=== PATIENT | female | born 1940 | race Caucasian/White ===

== ENCOUNTER → 2018-01-28 | Outpatient (CLI) | payer OTHER ==
[~2018-01-28] MED LIST: ATOR10 PO; ATOR40TA; B Complex1 EAC2 PO; CYCL10 PO; Diovan160 MG PO; FEM-CAL CITRAT1 EACH PO; FOLI1 PO; HYDACE5 PO; METO100ER PO; MILK THISTLE200 MG PO; NAPR500 PO; PREMARIN; RXCYCL10 PO; SPIRONOLACTONE; TOPROL
== END | disposition home or self-care (01) ==
LOC: LAB 16:53 → LAB SHORT 16:53
PROVIDERS: Internal Medicine Hematology & Oncology
DX: D51.9 Vitamin B12 deficiency anemia, unspecified (principal)
CPT/HCPCS: 82607; 82728; 82746; 83540; 83550

== ENCOUNTER → 2018-03-03 | Outpatient (CLI) | payer OTHER ==
[2018-03-03 13:54] LABS: BASOPHILS ABSOLUTE AUTO 0.05 K/mm3 (0.00-0.23); BASOPHILS PERCENT AUTO 1 % (0-2); EOSINOPHILS PERCENT AUTO 2 % (0-6); Hematocrit 38.4 % (33.0-51.0); Hemoglobin 13.2 g/dL (11.5-16.0); IMMATURE GRAN ABSOLUTE AUTO 0.02 K/mm3 (0.00-0.10); IMMATURE GRAN PERCENT AUTO 0 % (0-1); LYMPHOCYTES PERCENT AUTO 11 % (21-46); MONOCYTES ABSOLUTE AUTO 0.54 K/mm3 (0.16-1.47); MONOCYTES PERCENT AUTO 8 % (4-13); Mean Corpuscular HGB 32.6 pg (26.0-34.0); Mean Corpuscular HGB Conc 34.4 g/dL (31.5-36.5); Mean Corpuscular Volume 95 fL (80-100); Mean Platelet Volume 10.5 fL (9.1-12.4); NEUTROPHILS ABSOLUTE AUTO 5.06 K/mm3 (1.96-9.15); NEUTROPHILS PERCENT AUTO 78 % (41-73); Platelet Count 148 K/mm3 (150-400); RDW Standard Deviation 42.2 fL (35.1-46.3); Red Blood Cell Count 4.05 M/mm3 (3.80-5.20); White Blood Cell Count 6.47 K/mm3 (4.00-11.30)
[2018-03-03 14:05] LABS: Albumin, Blood 3.9 g/dL (3.4-5.0); Bilirubin, Total 0.6 mg/dL (0.1-1.0); Bun/Creatinine Ratio 12.8 (12.0-20.0); Calcium, Blood 9.9 mg/dL (8.5-10.1); Creatinine, Blood 1.17 mg/dL (0.40-1.00); Potassium, Blood 4.4 mmol/L (3.5-5.5); Total Protein, Blood 7.9 g/dL (6.4-8.2)
[2018-03-03 14:47] LABS: Percent Saturation 22.8 % (15.0-50.0)
== END ==
LOC: LAB SHORT 13:49 → LAB EV 13:49
PROVIDERS: Physician Assistant
DX: E83.119 Hemochromatosis, unspecified (principal); R11.2 Nausea with vomiting, unspecified
CPT/HCPCS: 80053; 82728; 83540; 83550; 85025

== ENCOUNTER → 2018-04-05 | Outpatient (CLI) | payer OTHER ==
[2018-04-05 18:19] LABS: Percent Saturation 23.5 % (15.0-50.0)
== END | disposition home or self-care (01) ==
LOC: LAB 12:00 → LAB SHORT 12:00
PROVIDERS: Internal Medicine Hematology & Oncology
DX: E83.118 Other hemochromatosis (principal)
CPT/HCPCS: 82728; 83540; 83550

== ENCOUNTER → 2018-05-06 | Outpatient (CLI) | payer OTHER ==
[2018-05-10 04:08] LABS: HBSAG SCREEN Negative (Negative); HEP A AB, IGM Negative (Negative); HEP B CORE AB, IGM Negative (Negative); HEP C VIRUS AB <0.1 (0.0-0.9)
== END | disposition home or self-care (01) ==
LOC: LAB SHORT 19:44 → LAB EV 19:44
PROVIDERS: Internal Medicine
DX: R16.0 Hepatomegaly, not elsewhere classified (principal)
CPT/HCPCS: 80074

== ENCOUNTER → 2018-05-12 | Outpatient (CLI) | payer OTHER ==
[2018-05-12 14:17] LABS: Adenovirus F 40/41 Not Detected (NOT DETECT); Astrovirus Not Detected (NOT DETECT); Campylobacter Sp Not Detected (NOT DETECT); Cryptosporidium Not Detected (NOT DETECT); Cyclospora Cayetanensis Not Detected (NOT DETECT); E. Coli O157 Not Detected (NOT DETECT); Entamoeba Histolytica Not Detected (NOT DETECT); Enteroaggregative E. coli-EAEC Not Detected (NOT DETECT); Enteropathogenic E. coli-EPEC Not Detected (NOT DETECT); Enterotoxigenic E. coli-ETEC Not Detected (NOT DETECT); Giardia Lamblia Not Detected (NOT DETECT); Norovirus GI/GII Not Detected (NOT DETECT); Plesiomonas Shigelloides Not Detected (NOT DETECT); Rotavirus A Not Detected (NOT DETECT); Salmonella Sp Not Detected (NOT DETECT); Sapovirus Not Detected (NOT DETECT); Shigella/Enteroin E. coli-EIEC Not Detected (NOT DETECT); Vibrio Cholerae Not Detected (NOT DETECT); Vibrio Sp Not Detected (NOT DETECT); Yersinia Enterocolitica Not Detected (NOT DETECT)
[2018-05-12 17:42] LABS: Shiga Toxin-prod E. coli-STEC Detected (NOT DETECT)
== END | disposition home or self-care (01) ==
LOC: LAB EV 12:00
PROVIDERS: Internal Medicine
DX: R19.7 Diarrhea, unspecified (principal)
CPT/HCPCS: 87507

== ENCOUNTER → 2018-06-16 | Outpatient (CLI) | payer OTHER | END | disposition home or self-care (01) | LOC: LAB SHORT 10:40 → LAB EV 10:40 | DX: R31.9 Hematuria, unspecified (principal); R19.7 Diarrhea, unspecified | CPT/HCPCS: 87077; 87086; 87186 ==

== ENCOUNTER 2018-11-07 07:11 | Day surgery (SDC) | payer OTHER ==
[~2018-11-07] VITALS: Ht 157.5 cm; Wt 55.1 kg
[~2018-11-07 07:11] MED LIST changes: +AMLO5 PO; +ASPI325 PO; +FAMO20 PO; +LEVSOD50 PO; +MIRT30 PO; +THIA100 PO; +VANC125 PO; +Zofran8 MG PO
--- NOTE | 2018-11-07 08:52 | NUR ---
11/07/18 0852 Antonina Abraham PT TEACHING DONE WITH BOTH THE PATIENT AND HER SON OSIRIS, NO QUESTIONS WERE ASKED, WARM BLANKET OFFERED BUT PT DECLINED. CALL LIGHT IN REACH.
== END 2018-11-07 09:40 | disposition home or self-care (01) ==
LOC: ORSCSDS 07:11
PROVIDERS: Internal Medicine Gastroenterology
PROC: 0DB58ZX Excision of Esophagus, Via Natural or Artificial Opening Endoscopic, Diagnostic (ICD-10-PCS; principal; 2018-11-07 09:15)
PROC: 0DB68ZX Excision of Stomach, Via Natural or Artificial Opening Endoscopic, Diagnostic (ICD-10-PCS; principal; 2018-11-07 09:15)
DX: R11.2 Nausea with vomiting, unspecified (principal); K21.0 Gastro-esophageal reflux disease with esophagitis; K29.70 Gastritis, unspecified, without bleeding; K44.9 Diaphragmatic hernia without obstruction or gangrene; I10 Essential (primary) hypertension; E78.5 Hyperlipidemia, unspecified; Z79.82 Long term (current) use of aspirin; K22.2 Esophageal obstruction; K29.80 Duodenitis without bleeding; K22.10 Ulcer of esophagus without bleeding; Z79.899 Other long term (current) drug therapy
CPT/HCPCS: 88305; 88342; J7120

== ENCOUNTER 2018-11-13 15:49 | Observation (INO) | payer OTHER ==
[~2018-11-13] VITALS: Ht 157.5 cm; Wt 56.5 kg
[2018-11-13 16:52] LABS: Source, Urine Clean Catch
[2018-11-13 17:00] LABS: Appearance, Urine Clear (Clear); Bilirubin, Urine Neg (Neg); Blood, Urine 2+ (Neg); Color, Urine Yellow (P-Yellow); Glucose Qualitative, Urine Neg (Neg); Ketones, Urine 1+ (Neg); Leukocyte Esterase, Urine Neg (Neg); Nitrite, Urine Pos (Neg); Protein, Urine 3+ (Neg); Specific Gravity, Urine 1.025 (1.003-1.022); Urobilinogen, Urine NORM (Normal)
[2018-11-13 17:01] LABS: BASOPHILS ABSOLUTE AUTO 0.08 K/mm3 (0.00-0.23); BASOPHILS PERCENT AUTO 1 % (0-2); EOSINOPHILS ABSOLUTE AUTO 0.04 K/mm3 (0.00-0.68); EOSINOPHILS PERCENT AUTO 1 % (0-6); Hematocrit 40.1 % (33.0-51.0); Hemoglobin 13.2 g/dL (11.5-16.0); IMMATURE GRAN ABSOLUTE AUTO 0.02 K/mm3 (0.00-0.10); IMMATURE GRAN PERCENT AUTO 0 % (0-1); LYMPHOCYTES ABSOLUTE AUTO 1.57 K/mm3 (0.84-5.20); LYMPHOCYTES PERCENT AUTO 22 % (21-46); MONOCYTES ABSOLUTE AUTO 0.54 K/mm3 (0.16-1.47); MONOCYTES PERCENT AUTO 8 % (4-13); Mean Corpuscular HGB 30.4 pg (26.0-34.0); Mean Corpuscular HGB Conc 32.9 g/dL (31.5-36.5); Mean Corpuscular Volume 92 fL (80-100); Mean Platelet Volume 10.4 fL (9.1-12.4); NEUTROPHILS ABSOLUTE AUTO 4.98 K/mm3 (1.96-9.15); NEUTROPHILS PERCENT AUTO 69 % (41-73); Platelet Count 177 K/mm3 (150-400); RDW Coefficient Variation 13.4 % (11.7-14.2); Red Blood Cell Count 4.34 M/mm3 (3.80-5.20); White Blood Cell Count 7.23 K/mm3 (4.00-11.30)
[2018-11-13 17:21] LABS: Bacteria Few /hpf; Squamous Epithelial Cells Few /hpf (Few)
[2018-11-13 17:22] LABS: Alanine Aminotransfer (ALT/SGP 31 U/L (12-78); Alk Phos 102 U/L (50-136); Anion Gap 11 mmol/L (6-16); Aspartate Aminotrans (AST/SGOT 49 U/L (12-37); Bilirubin, Total 0.6 mg/dL (0.1-1.0); Blood Urea Nitrogen 24 mg/dL (8-24); Bun/Creatinine Ratio 27.1 (12.0-20.0); CO2, Blood 25 mmol/L (21-32); Calcium, Blood 9.1 mg/dL (8.5-10.1); Chloride, Blood 102 mmol/L (98-108); Creatinine, Blood 0.88 mg/dL (0.40-1.00); Globulin, Blood 4.2 g/dL (2.2-4.0); Glomerular Filtration Rate >60 (60-); Glucose, Blood 135 mg/dL (70-99); Potassium, Blood 4.1 mmol/L (3.5-5.5); Sodium, Blood 138 mmol/L (136-145); Total Protein, Blood 8.2 g/dL (6.4-8.2)
[2018-11-13 18:05] LABS: Influenza A Negative (NEGATIVE); Influenza B Negative (NEGATIVE)
--- NOTE | 2018-11-14 00:55 | NUR ---
HYPERTENSIVE PT HAS BEEN HYPERTENSIVE SINCE HER ADMISSION AND PRIOR IN THE ER. SHE RECEIVED NORVASAC, COZAAR, AND METOPROLOL AT 2100. BP WAS A TAD BIT RESPONSIVE TO THOSE INTERVENTIONS. BP 177/75, DID REPEAT TWO HOURS LATER AND IT WAS 180/69. DR. HUGO CALLED AND NOTIFIED OF PT HYPERTENSION AND WHAT SHE HAD RECEIVED SHORTLY AFTER ADMISSION. NO NEW ORDERS WERE GIVEN. HE STATES CALL IF SBP OVER 185 AND HE WILL ORDER SOMETHING PRN AT THAT TIME.
--- NOTE | 2018-11-14 04:38 | NUR ---
SHIFT SUMMARY PT ER ADMIT THIS SHIFT FOR UTI. PT ANXIOUS UPON ADMISSION WITH VISIBLE TREMORS. THIS WAS ACCOMPAINED WITH DRY HEAVES AND NAUSEA. MEDICATED WITH 8 MG OF PO ZOFRAN, WHICH PT REPSONED WELL TO. CIWA INITALLY PERFORMED AND UPON ADMISSION AND WAS 11. PT WAS MONITORED AND UNTIL SHE SETTLED CIWA NOW 3 AT THIS TIME. PT REPORTS THAT SHE DRINKS ABOUT 3X A WEEK, AND ONLY DRINKS ONE GLASS. HER ALCHOHOL OF CHOICE IS WINE. SHE REPORTS HER LAST DRINK WAS THREE DAYS AGO. PT HYPERTENSIVE SINCE HER ADMISSION. MEDICATED WITH PO METOPROLOL, COZAAR, AND NORVASAC. PT BP RESPONDED MINIMALLY. DR. HUGO CALLED AND NOTIFIED OF PT HYPERTENSION, THERE WERE NO NEW ORDERS. HE STATES NOTIFY IF BP REACHES ABOVE 185. PT HYPERTENSIVE, BUT IS OTHERWISE AYMPTOMATIC. PT IS RECEIVING NS AT 100 ML/HR, AND HAS RECEIVED IV ROCEPHIN ORDERED. PT HAD A BM SHIFT BUT IT WAS MIXED WITH URINE. THUS, STILL PENDING STOOL SAMPLE AT THIS TIME TO R/O CDIFF. PT 1 ASSIST TO THE BATHROOM. A/OX4 AND CALLS APPROPRIATELY. MED REC INCOMPLETE AT THIS TIME. PT UNSURE OF HER METOPROLOL DOSE. PLEASE SEE DRUG CLARIFICATION ORDER. WILL NOTIFY DAYSHIFT RN TO FOLLOW UP WITH PT PHARMACY [facility] REGARDING THIS. PT HAS REMAINED AWAKE MOST OF THE NIGHT READING HER BOOK, AND HAS DENIED NEEDS. WILL CONTINUE TO MONITOR AND REPORT TO ONCOMING RN.
[2018-11-14 05:15] LABS: BASOPHILS ABSOLUTE AUTO 0.05 K/mm3 (0.00-0.23); BASOPHILS PERCENT AUTO 1 % (0-2); EOSINOPHILS ABSOLUTE AUTO 0.09 K/mm3 (0.00-0.68); EOSINOPHILS PERCENT AUTO 2 % (0-6); Hematocrit 36.3 % (33.0-51.0); Hemoglobin 11.9 g/dL (11.5-16.0); IMMATURE GRAN ABSOLUTE AUTO 0.01 K/mm3 (0.00-0.10); IMMATURE GRAN PERCENT AUTO 0 % (0-1); LYMPHOCYTES PERCENT AUTO 23 % (21-46); MONOCYTES ABSOLUTE AUTO 0.61 K/mm3 (0.16-1.47); MONOCYTES PERCENT AUTO 11 % (4-13); Mean Corpuscular HGB 29.9 pg (26.0-34.0); Mean Corpuscular HGB Conc 32.8 g/dL (31.5-36.5); Mean Corpuscular Volume 91 fL (80-100); Mean Platelet Volume 10.7 fL (9.1-12.4); NEUTROPHILS ABSOLUTE AUTO 3.55 K/mm3 (1.96-9.15); NEUTROPHILS PERCENT AUTO 63 % (41-73); Platelet Count 133 K/mm3 (150-400); RDW Coefficient Variation 13.3 % (11.7-14.2); RDW Standard Deviation 45.2 fL (35.1-46.3); Red Blood Cell Count 3.98 M/mm3 (3.80-5.20); White Blood Cell Count 5.61 K/mm3 (4.00-11.30)
[2018-11-14 05:51] LABS: Alanine Aminotransfer (ALT/SGP 26 U/L (12-78); Albumin, Blood 3.3 g/dL (3.4-5.0); Albumin/Globulin Ratio 0.9 (0.8-1.8); Alk Phos 88 U/L (50-136); Anion Gap 8 mmol/L (6-16); Aspartate Aminotrans (AST/SGOT 36 U/L (12-37); Blood Urea Nitrogen 17 mg/dL (8-24); Bun/Creatinine Ratio 21.7 (12.0-20.0); CO2, Blood 26 mmol/L (21-32); Calcium, Blood 8.4 mg/dL (8.5-10.1); Chloride, Blood 105 mmol/L (98-108); Creatinine, Blood 0.78 mg/dL (0.40-1.00); Globulin, Blood 3.5 g/dL (2.2-4.0); Glomerular Filtration Rate >60 (60-); Glucose, Blood 124 mg/dL (70-99); Potassium, Blood 3.7 mmol/L (3.5-5.5); Sodium, Blood 139 mmol/L (136-145); Total Protein, Blood 6.8 g/dL (6.4-8.2)
--- NOTE | 2018-11-14 07:57 | NUR ---
ASSUMED CARE OF PT- BEDSIDE REPORT COMPLETED. PER REPORT PT IS A DRINKER AND CIWAS ARE BEING DONE. LAST CIWA SCORE WAS 7. PT HAS LIBRIUM FOR CIWA OVER 8. CIWA 11 ON ADMIT PER REPORT FROM NIGHT ROSEMARIE MELGAR. PT ADMITTED FOR UTI. PT STATED DURRING REPORT THAT SHE IS ALREADY STARTING TO FEEL BETTER. LACTIC IS DOWN FROM FIRST LABS WELL TO 2.2 PER REPORT.
--- NOTE | 2018-11-14 16:53 | NUR ---
SHIFT SUMMARY- PT HAS HAD NO ACUTE CHANGES T/O THE SHIFT. CIWAS HAVE BEEN MINIMAL 4'S & 5'S. PT SEEMS TO CONSTANTLY HAVE TREMORS. PT IS INDEPENDENT IN THE ROOM WHEN IV IS DISCONNECTED. NEW ORDER FOR IVF AT 100ML PER HOUR RUNNING IN THE RIGHT AC 20G. PLACED A WASHRAG ON PT ARM TO PREVENT DISTAL OCCLUSION. PT PLEASENT AND COOPERATIVE WITH ALL CARE. FAMILY WANTS TO GET THE PT INTO AN ALCOHOL REHAB, [facility] IS WORKING ON THE DETAILS.
[2018-11-15 06:08] LABS: BASOPHILS ABSOLUTE AUTO 0.06 K/mm3 (0.00-0.23); BASOPHILS PERCENT AUTO 1 % (0-2); EOSINOPHILS ABSOLUTE AUTO 0.23 K/mm3 (0.00-0.68); EOSINOPHILS PERCENT AUTO 5 % (0-6); Hematocrit 40.6 % (33.0-51.0); Hemoglobin 13.2 g/dL (11.5-16.0); IMMATURE GRAN ABSOLUTE AUTO 0.01 K/mm3 (0.00-0.10); IMMATURE GRAN PERCENT AUTO 0 % (0-1); LYMPHOCYTES ABSOLUTE AUTO 1.34 K/mm3 (0.84-5.20); LYMPHOCYTES PERCENT AUTO 27 % (21-46); MONOCYTES ABSOLUTE AUTO 0.39 K/mm3 (0.16-1.47); MONOCYTES PERCENT AUTO 8 % (4-13); Mean Corpuscular HGB 30.6 pg (26.0-34.0); Mean Corpuscular HGB Conc 32.5 g/dL (31.5-36.5); NEUTROPHILS ABSOLUTE AUTO 2.96 K/mm3 (1.96-9.15); NEUTROPHILS PERCENT AUTO 59 % (41-73); RDW Coefficient Variation 13.2 % (11.7-14.2); RDW Standard Deviation 45.8 fL (35.1-46.3); Red Blood Cell Count 4.31 M/mm3 (3.80-5.20); White Blood Cell Count 4.99 K/mm3 (4.00-11.30)
[2018-11-15 06:17] LABS: Mean Corpuscular Volume 94 fL (80-100); Mean Platelet Volume 10.8 fL (9.1-12.4); Platelet Count 110 K/mm3 (150-400)
[2018-11-15 06:36] LABS: Alanine Aminotransfer (ALT/SGP 35 U/L (12-78); Albumin, Blood 3.5 g/dL (3.4-5.0); Albumin/Globulin Ratio 0.9 (0.8-1.8); Alk Phos 88 U/L (50-136); Anion Gap 7 mmol/L (6-16); Aspartate Aminotrans (AST/SGOT 68 U/L (12-37); Blood Urea Nitrogen 14 mg/dL (8-24); Bun/Creatinine Ratio 15.4 (12.0-20.0); CO2, Blood 25 mmol/L (21-32); Calcium, Blood 8.6 mg/dL (8.5-10.1); Chloride, Blood 106 mmol/L (98-108); Creatinine, Blood 0.91 mg/dL (0.40-1.00); Glomerular Filtration Rate >60 (60-); Glucose, Blood 106 mg/dL (70-99); Potassium, Blood 4.2 mmol/L (3.5-5.5); Sodium, Blood 138 mmol/L (136-145); Total Protein, Blood 7.5 g/dL (6.4-8.2)
--- NOTE | 2018-11-15 06:44 | NUR ---
Rn summary: Patient is alert and oriented x3. Was not able to see that it was night time. Because of the light in the hallway she would say " see how light it is?" Patient Ciwa has been 3, 0, 5 respectively. Higher this am due to restlessness, anxiety about being discharged today. Pt accidently pulled IV out when getting up to the BR. Pt is a very difficult start and she did not want it restarted if she was being discharged today. Pt was given zofran 8mg at the beginning of shift with good relief. Pt is up independantly to BR, steady on feet. Pt's major complaint has been red itchy eyes. She states she has had some crusty drainage in her eye lashes. Eye drops ordered and she has had 2 doses. Eyes remain red at this time. Call light in reach. Calls appropriately. Pt is in isolation for hx of C-diff. Stool sample received and sent to lab, stool is formed. to lab. Stool is formed.
--- NOTE | 2018-11-15 07:49 | NUR ---
Pt gave consent for care to chief nursing officer Camille Bautista for 11/15/18.
[2018-11-15] MEDS ORDERED: AMLO5 PO (15:26)
[2018-11-15] MEDS ORDERED: CEPH500 PO (15:26)
[2018-11-15] MEDS ORDERED: SACC250C PO (15:27)
[2018-11-15] MEDS ORDERED: LOSA50 PO (15:27)
[2018-11-15] MEDS ORDERED: ITCHY EYE5 ML BOTHEYES (15:29)
--- NOTE | 2018-11-15 15:56 | NUR ---
D/C INSTRUCTIONS PROVIDED AND EXPLAINED. MEDS FAXED TO [facility]. PT D/C VIA WHEELCHAIR WITH AUDIOMETRIC TECHNICIAN AND SON.
--- NOTE | 2018-11-15 18:32 | NUR ---
Mrs. Sotomayor tells me she is still uncertain why she has been so ill. That said, she does want to go home and is being discharged this afternoon. We had a easy rapport. she admits she has a "drinking problem" in the distant past, but says she only drinks a glass of wine "once in awhile." She live alone but feels well supported by her son. She is Jewish, but not active. she allowed me to pray for her.
== END 2018-11-15 15:36 | disposition home or self-care (01) ==
LOC: ER 15:49 → MEDS 15:50
PROVIDERS: Family Medicine; Nurse Practitioner Acute Care; Physician Assistant; ADMIT Internal Medicine
DX: N39.0 Urinary tract infection, site not specified (principal); F10.20 Alcohol dependence, uncomplicated; R19.7 Diarrhea, unspecified; R25.1 Tremor, unspecified; F19.939 Other psychoactive substance use, unspecified with withdrawal, unspecified; I16.0 Hypertensive urgency; I10 Essential (primary) hypertension; E03.9 Hypothyroidism, unspecified; E78.5 Hyperlipidemia, unspecified; R74.0 Nonspecific elevation of levels of transaminase and lactic acid dehydrogenase [LDH]; Z79.899 Other long term (current) drug therapy; Z88.0 Allergy status to penicillin; Z88.5 Allergy status to narcotic agent; Z88.8 Allergy status to other drugs, medicaments and biological substances
CPT/HCPCS: 36415; 74176; 80053; 81001; 83540; 83605; 83690; 84443; 85025; 87077; 87086; 87186; 87493; 87804; 93005; 93010; 96361; 96365; 96366; 96374; 96375; 96376; 97110; 97116; 97162; 97530; 99285-25; G0378; G0480; J0696; J2405; J7030

== ENCOUNTER 2019-02-15 14:26 | Inpatient (IN) | payer OTHER ==
[~2019-02-15] VITALS: Ht 157.5 cm; Wt 54.9 kg
[~2019-02-15 14:26] MED LIST changes: +CEPH500 PO; +ITCHY EYE5 ML BOTHEYES; +LOSA50 PO; +SACC250C PO
[2019-02-15] MEDS ORDERED: OMEPRAZOLE20 MG PO (15:28)
[2019-02-15 16:08] LABS: BASOPHILS ABSOLUTE AUTO 0.03 K/mm3 (0.00-0.23); BASOPHILS PERCENT AUTO 1 % (0-2); EOSINOPHILS ABSOLUTE AUTO 0.15 K/mm3 (0.00-0.68); EOSINOPHILS PERCENT AUTO 3 % (0-6); Hematocrit 34.7 % (33.0-51.0); Hemoglobin 11.3 g/dL (11.5-16.0); IMMATURE GRAN ABSOLUTE AUTO 0.01 K/mm3 (0.00-0.10); IMMATURE GRAN PERCENT AUTO 0 % (0-1); LYMPHOCYTES PERCENT AUTO 25 % (21-46); MONOCYTES ABSOLUTE AUTO 0.41 K/mm3 (0.16-1.47); MONOCYTES PERCENT AUTO 8 % (4-13); Mean Corpuscular HGB Conc 32.6 g/dL (31.5-36.5); Mean Corpuscular Volume 95 fL (80-100); Mean Platelet Volume 10.9 fL (9.1-12.4); NEUTROPHILS ABSOLUTE AUTO 3.22 K/mm3 (1.96-9.15); NEUTROPHILS PERCENT AUTO 63 % (41-73); Platelet Count 115 K/mm3 (150-400); RDW Coefficient Variation 13.3 % (11.7-14.2); Red Blood Cell Count 3.65 M/mm3 (3.80-5.20); White Blood Cell Count 5.12 K/mm3 (4.00-11.30)
[2019-02-15] MEDS ORDERED: LOSA50 PO (16:27)
[2019-02-15 16:29] LABS: Albumin, Blood 3.9 g/dL (3.4-5.0); Albumin/Globulin Ratio 1.1 (0.8-1.8); Bilirubin, Total 0.5 mg/dL (0.1-1.0); Bun/Creatinine Ratio 28.9 (12.0-20.0); Calcium, Blood 8.3 mg/dL (8.5-10.1); Creatinine, Blood 1.35 mg/dL (0.40-1.00); Globulin, Blood 3.6 g/dL (2.2-4.0); Potassium, Blood 3.4 mmol/L (3.5-5.5); Total Protein, Blood 7.5 g/dL (6.4-8.2)
--- NOTE | 2019-02-15 18:27 | NUR ---
Called ED for report on pt arriving to PCU 3. Report received from Sandra Land RN.
[2019-02-16 03:56] LABS: BASOPHILS ABSOLUTE AUTO 0.05 K/mm3 (0.00-0.23); BASOPHILS PERCENT AUTO 1 % (0-2); EOSINOPHILS ABSOLUTE AUTO 0.22 K/mm3 (0.00-0.68); EOSINOPHILS PERCENT AUTO 5 % (0-6); Hematocrit 36.1 % (33.0-51.0); Hemoglobin 11.6 g/dL (11.5-16.0); IMMATURE GRAN ABSOLUTE AUTO 0.01 K/mm3 (0.00-0.10); IMMATURE GRAN PERCENT AUTO 0 % (0-1); LYMPHOCYTES ABSOLUTE AUTO 1.39 K/mm3 (0.84-5.20); LYMPHOCYTES PERCENT AUTO 31 % (21-46); MONOCYTES ABSOLUTE AUTO 0.41 K/mm3 (0.16-1.47); MONOCYTES PERCENT AUTO 9 % (4-13); Mean Corpuscular HGB 30.6 pg (26.0-34.0); Mean Corpuscular HGB Conc 32.1 g/dL (31.5-36.5); Mean Corpuscular Volume 95 fL (80-100); Mean Platelet Volume 11.1 fL (9.1-12.4); NEUTROPHILS ABSOLUTE AUTO 2.45 K/mm3 (1.96-9.15); NEUTROPHILS PERCENT AUTO 54 % (41-73); Platelet Count 100 K/mm3 (150-400); RDW Coefficient Variation 13.3 % (11.7-14.2); RDW Standard Deviation 47.5 fL (35.1-46.3); Red Blood Cell Count 3.79 M/mm3 (3.80-5.20); White Blood Cell Count 4.53 K/mm3 (4.00-11.30)
[2019-02-16 04:17] LABS: Albumin, Blood 3.5 g/dL (3.4-5.0); Bilirubin, Total 0.7 mg/dL (0.1-1.0); Bun/Creatinine Ratio 31.4 (12.0-20.0); Calcium, Blood 8.4 mg/dL (8.5-10.1); Creatinine, Blood 1.02 mg/dL (0.40-1.00); Globulin, Blood 3.4 g/dL (2.2-4.0); Magnesium, Blood 1.8 mg/dL (1.6-2.4); Potassium, Blood 3.9 mmol/L (3.5-5.5); Total Protein, Blood 6.9 g/dL (6.4-8.2)
--- NOTE | 2019-02-16 05:48 | NUR ---
SHIFT SUMMARY PT RESTING IN ROOM COFORTABLY AT THIS TIME. PT HAD NO ACUTE CHANGES IN STATUS SINCE ARRIVAL AT START OF SHIFT. RESP EVEN UNLABORED ON RA. DENIES ANY PAIN. IVF INFUSING IN PIV. PT RESTIGN COMFORTABLY AT THIS TIME DENIES OTHER NEEDS. CALL LIGHT IN REACH.
--- NOTE | 2019-02-16 07:23 | NUR ---
Bedside handoff report from Dodie Sharma RN. The pt is awake, states she is feeling fine and hopes that she gets to go home today. Magnesium level noted normal with this morning lab draw. Blood pressure currently is according to the patient, what she normally runs.
[2019-02-16] MEDS ORDERED: MAG6464 MG PO (10:00)
--- NOTE | 2019-02-16 11:20 | NUR ---
this morning at bedside handoff, the pt reported that she was feeling well and hoping to go home today. IV Right AC noted not present; Dodie Sharma, noc shift RN reported that the pt requested IV rotation as the IV fluid infusion was difficult with the placement in the AC space. IV noted to be in the left forearm, WNL. This 20g IV was removed at 1030 this morning in anticipation of pt's discharge. Before discharge, the pt requested to walk around the room and make sure that she felt well enough to drive herself home. I had a conversation with Veronica Conner about this this morning, and she offered to arrange a ride for the patient home as she is the pt's neighbor. At that time, Kellie declined. AFter walking around the room, dressing herself in the bathroom, and coming out of the room to talk with me, she stated that she felt well and was ready to be escorted out to her car which was in the ED parking lot. She appeared well, without any discomfort, anxiety or any concerns at that time. She was escorted out on foot, by Cheryl Sweeney CNA, to her private vehicle which was parked in the ED parking lot. No verbalized discomfort or apparent difficulty in walking this distance. The pt stated that she felt well enough to drive herself home.
== END 2019-02-16 11:07 | disposition home or self-care (01) | DRG 684 ==
LOC: ER 14:26 → PCU 15:51
PROVIDERS: Physician Assistant; ADMIT Internal Medicine Endocrinology, Diabetes & Metabolism
DX: N17.9 Acute kidney failure, unspecified (principal); E83.42 Hypomagnesemia; I10 Essential (primary) hypertension; E03.9 Hypothyroidism, unspecified; E78.5 Hyperlipidemia, unspecified; K76.0 Fatty (change of) liver, not elsewhere classified; I65.29 Occlusion and stenosis of unspecified carotid artery; G25.2 Other specified forms of tremor; E86.1 Hypovolemia; I49.3 Ventricular premature depolarization
CPT/HCPCS: 36415; 80053; 83735; 84100; 85025; 93005; 93010; 96365; 96366; 99284-25; J1650; J3475; J3480

== ENCOUNTER → 2019-06-29 | Outpatient (CLI) | payer OTHER ==
[~2019-06-29] MED LIST changes: +MAG6464 MG PO; +OMEPRAZOLE20 MG PO
[2019-06-29 17:55] LABS: Adenovirus F 40/41 Not Detected (NOT DETECT); Astrovirus Not Detected (NOT DETECT); Campylobacter Sp Not Detected (NOT DETECT); Cryptosporidium Not Detected (NOT DETECT); Cyclospora Cayetanensis Not Detected (NOT DETECT); E. Coli O157 Not Detected (NOT DETECT); Entamoeba Histolytica Not Detected (NOT DETECT); Enteroaggregative E. coli-EAEC Not Detected (NOT DETECT); Enteropathogenic E. coli-EPEC Not Detected (NOT DETECT); Enterotoxigenic E. coli-ETEC Not Detected (NOT DETECT); Giardia Lamblia Not Detected (NOT DETECT); Norovirus GI/GII Not Detected (NOT DETECT); Plesiomonas Shigelloides Not Detected (NOT DETECT); Rotavirus A Not Detected (NOT DETECT); Salmonella Sp Not Detected (NOT DETECT); Sapovirus Not Detected (NOT DETECT); Shiga Toxin-prod E. coli-STEC Not Detected (NOT DETECT); Shigella/Enteroin E. coli-EIEC Not Detected (NOT DETECT); Vibrio Cholerae Not Detected (NOT DETECT); Vibrio Sp Not Detected (NOT DETECT); Yersinia Enterocolitica Not Detected (NOT DETECT)
[2019-06-30 13:41] LABS: Stool Occult Bld Immuno 1 Negative (NEGATIVE)
== END | disposition home or self-care (01) ==
LOC: OLS 08:00 → LAB SHORT 08:00
PROVIDERS: Physician Assistant Medical
DX: R19.7 Diarrhea, unspecified (principal)
CPT/HCPCS: 0097U; 87177; 87209; 87324; 89055; G0328

== ENCOUNTER → 2020-03-11 | Outpatient (CLI) | payer OTHER ==
[2020-03-11 08:36] LABS: BASOPHILS ABSOLUTE AUTO 0.06 K/mm3 (0.00-0.23); BASOPHILS PERCENT AUTO 1 % (0-2); EOSINOPHILS ABSOLUTE AUTO 0.27 K/mm3 (0.00-0.68); EOSINOPHILS PERCENT AUTO 4 % (0-6); Hematocrit 33.1 % (33.0-51.0); Hemoglobin 10.8 g/dL (11.5-16.0); IMMATURE GRAN ABSOLUTE AUTO 0.02 K/mm3 (0.00-0.10); IMMATURE GRAN PERCENT AUTO 0 % (0-1); LYMPHOCYTES ABSOLUTE AUTO 1.13 K/mm3 (0.84-5.20); LYMPHOCYTES PERCENT AUTO 18 % (21-46); MONOCYTES ABSOLUTE AUTO 0.49 K/mm3 (0.16-1.47); MONOCYTES PERCENT AUTO 8 % (4-13); Mean Corpuscular HGB 32.9 pg (26.0-34.0); Mean Corpuscular HGB Conc 32.6 g/dL (31.5-36.5); Mean Corpuscular Volume 101 fL (80-100); NEUTROPHILS ABSOLUTE AUTO 4.28 K/mm3 (1.96-9.15); NEUTROPHILS PERCENT AUTO 69 % (41-73); Platelet Count 193 K/mm3 (150-400); RDW Standard Deviation 45.1 fL (35.1-46.3); Red Blood Cell Count 3.28 M/mm3 (3.80-5.20); White Blood Cell Count 6.25 K/mm3 (4.00-11.30)
[2020-03-11 08:47] LABS: Albumin, Blood 3.4 g/dL (3.4-5.0); Albumin/Globulin Ratio 0.8 (0.8-1.8); Bilirubin, Total 0.4 mg/dL (0.1-1.0); Bun/Creatinine Ratio 23.8 (12.0-20.0); Calcium, Blood 9.8 mg/dL (8.5-10.1); Creatinine, Blood 1.26 mg/dL (0.40-1.00); Globulin, Blood 4.3 g/dL (2.2-4.0); Potassium, Blood 4.9 mmol/L (3.5-5.5); Total Protein, Blood 7.7 g/dL (6.4-8.2); Uric Acid, Blood 7.6 mg/dL (2.6-6.0)
== END | disposition home or self-care (01) ==
LOC: LAB SHORT 08:32 → LAB EV 08:32
PROVIDERS: Physician Assistant Medical
DX: M79.672 Pain in left foot (principal)
CPT/HCPCS: 80053; 84550; 85025

== ENCOUNTER → 2021-05-07 | Outpatient (CLI) | payer OTHER | END | disposition home or self-care (01) | LOC: LAB SHORT 15:13 | DX: R11.0 Nausea (principal); R10.9 Unspecified abdominal pain | CPT/HCPCS: 87077; 87086; 87186 ==

== ENCOUNTER 2022-02-04 15:38 | Emergency (ER) | payer OTHER ==
[~2022-02-04] VITALS: Ht 157.5 cm; Wt 49.2 kg
[2022-02-04 18:57] LABS: BASOPHILS ABSOLUTE AUTO 0.09 K/mm3 (0.00-0.23); BASOPHILS PERCENT AUTO 2 % (0-2); EOSINOPHILS ABSOLUTE AUTO 0.25 K/mm3 (0.00-0.68); EOSINOPHILS PERCENT AUTO 4 % (0-6); Hemoglobin 11.7 g/dL (11.5-16.0); IMMATURE GRAN ABSOLUTE AUTO 0.02 K/mm3 (0.00-0.10); IMMATURE GRAN PERCENT AUTO 0 % (0-1); LYMPHOCYTES ABSOLUTE AUTO 1.41 K/mm3 (0.84-5.20); LYMPHOCYTES PERCENT AUTO 24 % (21-46); MONOCYTES ABSOLUTE AUTO 0.34 K/mm3 (0.16-1.47); MONOCYTES PERCENT AUTO 6 % (4-13); Mean Corpuscular HGB 32.1 pg (26.0-34.0); Mean Corpuscular HGB Conc 32.5 g/dL (31.5-36.5); Mean Corpuscular Volume 99 fL (80-100); Mean Platelet Volume 10.7 fL (9.1-12.4); NEUTROPHILS ABSOLUTE AUTO 3.74 K/mm3 (1.96-9.15); NEUTROPHILS PERCENT AUTO 64 % (41-73); Platelet Count 121 K/mm3 (150-400); RDW Coefficient Variation 12.8 % (11.7-14.2); RDW Standard Deviation 46.5 fL (35.1-46.3); Red Blood Cell Count 3.65 M/mm3 (3.80-5.20); White Blood Cell Count 5.85 K/mm3 (4.00-11.30)
[2022-02-04 19:15] LABS: Albumin, Blood 3.1 g/dL (3.4-5.0); Albumin/Globulin Ratio 0.8 (0.8-1.8); Bilirubin, Total 0.4 mg/dL (0.1-1.0); Bun/Creatinine Ratio 13.5 (12.0-20.0); Calcium, Blood 9.4 mg/dL (8.5-10.1); Creatinine, Blood 0.96 mg/dL (0.40-1.00); Globulin, Blood 3.7 g/dL (2.2-4.0); Total Protein, Blood 6.8 g/dL (6.4-8.2)
== END 2022-02-04 20:07 | disposition home or self-care (01) ==
LOC: ER 15:38
PROVIDERS: Physician Assistant
DX: S00.83XA Contusion of other part of head, initial encounter (principal); S09.90XA Unspecified injury of head, initial encounter; Z88.0 Allergy status to penicillin; Z88.5 Allergy status to narcotic agent; Z79.899 Other long term (current) drug therapy; W18.30XA Fall on same level, unspecified, initial encounter
CPT/HCPCS: 70450; 80053; 85025; 99284-25; G0480

== ENCOUNTER 2022-09-14 15:02 | Emergency (ER) | payer OTHER ==
[~2022-09-14] VITALS: Ht 157.5 cm; Wt 54.4 kg
== END 2022-09-14 19:28 | disposition left against medical advice (07) ==
LOC: ER 15:02
DX: S09.90XA Unspecified injury of head, initial encounter (principal); W19.XXXA Unspecified fall, initial encounter; Z53.21 Procedure and treatment not carried out due to patient leaving prior to being seen by health care provider
CPT/HCPCS: 70450; 70486

== ENCOUNTER 2022-10-30 12:06 | Inpatient (IN) | payer MEDICARE ==
[~2022-10-30] VITALS: Ht 157.5 cm; Wt 44.5 kg
[2022-10-30 12:33] LABS: BASOPHILS ABSOLUTE AUTO 0.06 K/mm3 (0.00-0.23); BASOPHILS PERCENT AUTO 1 % (0-2); EOSINOPHILS ABSOLUTE AUTO 0.02 K/mm3 (0.00-0.68); EOSINOPHILS PERCENT AUTO 0 % (0-6); Hematocrit 43.7 % (33.0-51.0); IMMATURE GRAN ABSOLUTE AUTO 0.02 K/mm3 (0.00-0.10); IMMATURE GRAN PERCENT AUTO 0 % (0-1); LYMPHOCYTES ABSOLUTE AUTO 0.91 K/mm3 (0.84-5.20); LYMPHOCYTES PERCENT AUTO 13 % (21-46); MONOCYTES ABSOLUTE AUTO 0.52 K/mm3 (0.16-1.47); MONOCYTES PERCENT AUTO 7 % (4-13); Mean Corpuscular HGB 33.3 pg (26.0-34.0); Mean Corpuscular HGB Conc 34.3 g/dL (31.5-36.5); Mean Corpuscular Volume 97 fL (80-100); Mean Platelet Volume 10.3 fL (9.1-12.4); NEUTROPHILS ABSOLUTE AUTO 5.57 K/mm3 (1.96-9.15); NEUTROPHILS PERCENT AUTO 79 % (41-73); Platelet Count 128 K/mm3 (150-400); RDW Coefficient Variation 12.5 % (11.7-14.2); RDW Standard Deviation 44.8 fL (35.1-46.3)
[2022-10-30 13:03] LABS: Albumin, Blood 3.5 g/dL (3.4-5.0); Albumin/Globulin Ratio 0.8 (0.8-1.8); Bilirubin, Total 1.1 mg/dL (0.1-1.0); Bun/Creatinine Ratio 14.8 (12.0-20.0); Calcium, Blood 9.3 mg/dL (8.5-10.1); Creatinine, Blood 0.74 mg/dL (0.40-1.00); Globulin, Blood 4.2 g/dL (2.2-4.0); Potassium, Blood 3.4 mmol/L (3.5-5.5); Total Protein, Blood 7.7 g/dL (6.4-8.2)
[2022-10-30 13:14] LABS: Ethanol (Alcohol), Blood, Med <3 mg/dL
[2022-10-30] MEDS ORDERED: ATOR10 PO (14:25)
[2022-10-30] MEDS ORDERED: EUTHYROX50 MCG PO (14:27)
[2022-10-30] MEDS ORDERED: LOSARTAN POTAS100 M1 PO (14:28)
[2022-10-30 14:56] LABS: Thyroid Stimulating Hormone 4.96 uIU/mL (0.360-4.800)
[2022-10-30 15:09] LABS: Magnesium, Blood 1.1 mg/dL (1.6-2.4)
--- NOTE | 2022-10-30 22:52 | NUR ---
TRANSFER NOTE/PATIENT UPDATE THIS RN RECEIVED REPORT VIA TELEPHONE FROM DERRICK HOUSTON IN [facility] ED. PATIENT TRANSFERRED TO ROOM AT 2105. PATIENT WAS ABLE TO AMBULATE FROM GURNEY TO BED WITH STEADY GAIT WITH GAITBELT ON. PATIENT REPORTED SLIGHT DIZZINESS WITH CHANGES POSITIONS. PATIENT REPORTS FREQUENT FALLS WHEN SHE IS SOBER. PATIENT WITH HYPERTENSION NOTED UPON ARRIVAL WITH SBP 180-200. CALL PLACED TO MD DUARTE FOR HTN WITH ORDERS FOR HYDRALAZINE Q6HRS FOR SBP >180. SBP 178 AFTER ORDER OBTAINED SO NO FURTHER INTERVENTIONS GIVEN. PATIENT SHOWS NSR ON MONITOR WITH HR 60-70'S. DENIES CHEST PAIN/PRESSURE, PALPITATIONS OR SOB. PATIENT CONVERTED FROM AFIB WHILE STILL IN THE ED. PATIENT IS ALERT AND ORIENTED TO SELF, FAMILY, AND SITUATION BUT IS CONFUSED ABOUT PLACE/DATE/TIME. PATIENT CIWA 2 UPON ARRIVAL, IT IS UNCLEAR IF DISORIENTATION IS DUE TO WITHDRAWAL OR FROM REPORTED HX OF DEMENTIA. PATIENT UNAWARE OF HOME MEDICATIONS. AFEBRILE. ON RA WITH SPO2 >94%. BED ALARM ON DUE TO POSSIBLE IMPULSIVENESS BECAUSE OF CONFUSION. CALL LIGHT WITHIN REACH. SBA TO BEDSIDE COMMODE. BED IN LOWEST POSITION. THIS RN WILL REVIEW CHART AND CONTINUE TO PROVIDE INTERVENTIONS NEEDED/ORDERED.
[2022-10-31] MEDS ORDERED: OMEP20ER PO (03:24)
[2022-10-31] MEDS ORDERED: CALC.25 PO (03:24)
[2022-10-31 04:08] LABS: BASOPHILS ABSOLUTE AUTO 0.07 K/mm3 (0.00-0.23); BASOPHILS PERCENT AUTO 1 % (0-2); EOSINOPHILS ABSOLUTE AUTO 0.11 K/mm3 (0.00-0.68); EOSINOPHILS PERCENT AUTO 2 % (0-6); Hemoglobin 12.3 g/dL (11.5-16.0); IMMATURE GRAN ABSOLUTE AUTO 0.02 K/mm3 (0.00-0.10); IMMATURE GRAN PERCENT AUTO 0 % (0-1); LYMPHOCYTES ABSOLUTE AUTO 1.07 K/mm3 (0.84-5.20); LYMPHOCYTES PERCENT AUTO 21 % (21-46); MONOCYTES ABSOLUTE AUTO 0.57 K/mm3 (0.16-1.47); MONOCYTES PERCENT AUTO 11 % (4-13); Mean Corpuscular HGB Conc 34.2 g/dL (31.5-36.5); Mean Corpuscular Volume 97 fL (80-100); Mean Platelet Volume 10.2 fL (9.1-12.4); NEUTROPHILS ABSOLUTE AUTO 3.36 K/mm3 (1.96-9.15); NEUTROPHILS PERCENT AUTO 65 % (41-73); Platelet Count 102 K/mm3 (150-400); RDW Coefficient Variation 12.4 % (11.7-14.2); RDW Standard Deviation 43.9 fL (35.1-46.3); Red Blood Cell Count 3.73 M/mm3 (3.80-5.20)
[2022-10-31 04:26] LABS: Albumin/Globulin Ratio 0.8 (0.8-1.8); Bun/Creatinine Ratio 18.3 (12.0-20.0); Creatinine, Blood 0.87 mg/dL (0.40-1.00); Globulin, Blood 3.6 g/dL (2.2-4.0); Potassium, Blood 3.5 mmol/L (3.5-5.5); Total Protein, Blood 6.6 g/dL (6.4-8.2)
--- NOTE | 2022-10-31 05:48 | NUR ---
SHIFT SUMMARY PATIENT CONTINUES TO BE IN NSR WITH HR 70-80'S AT THIS TIME. HTN NOTED, MEDICATING PER EMAR. AFEBRILE. SPO2 >92% ON RA. PATIENT DENIES SOB AND CHEST PAIN/PRESSURE. PATIENT REPORTS DIZZINESS/LIGHTHEADNESS WITH POSITION CHANGES. LAST CIWA OF 9; MEDICATED PER EMAR. PATIENT WITH ANXIETY, AGITATION, TREMORS, AND DISORIENTATION SYMPTOMS. PATIENT IS STANDBY ASSIST TO BSC WITH GAITBELT. PATIENT ALERT AND ORIENTED TO SELF, PERSON, AND SITUATION. UNSURE OF PLACE/DATE/TIME. FORGETFUL. HX OF DEMENTIA. BED ALARM ON, BED IN LOWEST POSITION AND CALL LIGHT WITHIN REACH. THIS RN WILL CONTINUE TO MONITOR UNTIL SHIFT CHANGE AT 0700.
--- NOTE | 2022-10-31 18:41 | NUR ---
SHIFT SUMMARY- PT ALERT AND ORIENTED TO SELF, VERY FORGETFUL AND SEEMS TO BE GETTING MORE AGGITATED IT GETS LATER IN THE DAY. PT HAS Hx ETOH AND IS HAVING CIWAS DONE. SHE WAS MEDICATED PRIOR TO ARRIVAL ON MEDICAL FLOOR WITH PO LIBRIUM. PT CURRENTLY IN BED. SHE CALLS FREQUENTLY FOR NO APPARENT REASON, STAFF RESPOND AND SHE STATES SHE DOES NOT NEED ANYTHING, STAFF OFFER TO TAKE HER TO THE RESTROOM ANND SHE DECLINES, THEN WILL SET OFF THE BED ALARM WITHIN 2 MINUTES. PT HAS BECOME ANGRY WITH THE ALARM THIS EVENING, WHEN IT WAS EXPLAINED WHAT THE ALARM IS FOR SHE CALMED. PT IN BED, CALL LIGHT IN REACH ON TELE NSR IN THE 60'S ON ARRIVAL TO MED FLOOR THIS EVENING. NO CURRENT S&S OF DISTRESS OTED, WILL CTM AND PASS ON TO NIGHT RN IN REPORT.
[2022-11-01 07:04] LABS: BASOPHILS ABSOLUTE AUTO 0.06 K/mm3 (0.00-0.23); BASOPHILS PERCENT AUTO 1 % (0-2); EOSINOPHILS ABSOLUTE AUTO 0.24 K/mm3 (0.00-0.68); EOSINOPHILS PERCENT AUTO 5 % (0-6); Hematocrit 35.6 % (33.0-51.0); Hemoglobin 11.7 g/dL (11.5-16.0); IMMATURE GRAN ABSOLUTE AUTO 0.02 K/mm3 (0.00-0.10); IMMATURE GRAN PERCENT AUTO 0 % (0-1); LYMPHOCYTES ABSOLUTE AUTO 1.01 K/mm3 (0.84-5.20); LYMPHOCYTES PERCENT AUTO 20 % (21-46); MONOCYTES PERCENT AUTO 10 % (4-13); Mean Corpuscular HGB 32.2 pg (26.0-34.0); Mean Corpuscular HGB Conc 32.9 g/dL (31.5-36.5); Mean Corpuscular Volume 98 fL (80-100); Mean Platelet Volume 11.4 fL (9.1-12.4); NEUTROPHILS ABSOLUTE AUTO 3.18 K/mm3 (1.96-9.15); NEUTROPHILS PERCENT AUTO 63 % (41-73); Platelet Count 90 K/mm3 (150-400); RDW Coefficient Variation 12.4 % (11.7-14.2); RDW Standard Deviation 44.7 fL (35.1-46.3); Red Blood Cell Count 3.63 M/mm3 (3.80-5.20); White Blood Cell Count 5.01 K/mm3 (4.00-11.30)
[2022-11-01 07:33] LABS: Albumin/Globulin Ratio 0.9 (0.8-1.8); Bilirubin, Total 1.2 mg/dL (0.1-1.0); Bun/Creatinine Ratio 18.2 (12.0-20.0); Calcium, Blood 9.1 mg/dL (8.5-10.1); Creatinine, Blood 1.21 mg/dL (0.40-1.00); Globulin, Blood 3.4 g/dL (2.2-4.0); Magnesium, Blood 2.5 mg/dL (1.6-2.4); Potassium, Blood 3.9 mmol/L (3.5-5.5); Total Protein, Blood 6.4 g/dL (6.4-8.2)
--- NOTE | 2022-11-01 07:45 | NUR ---
SHIFT SUMMARY A&O X 3. VSS. CIWA SCORE OF 1. STANDBY ASSIST TO BATHROOM. PT SLEPT THROUGH THE NIGHT. AT 06OO PM, PT REQUESTING TO TAKE A SHOWER. WILL PASS ON TO DAYSHIFT.
[2022-11-01 16:57] LABS: Hematocrit 35.8 % (33.0-51.0); Hemoglobin 11.9 g/dL (11.5-16.0)
--- NOTE | 2022-11-01 20:12 | NUR ---
SHIFT SUMMARY- PT ALERT TO SELF AND FAMILY. SHE HAS HAD CIWAS OF 1-4 TODAY. AT 1600 THE PT GOT UP TO THE BATHROOM, ACCIDENTALLY REMOVED HER IV AND MADE A LARGE MESS OF BLOOD ON THE FLOOR IN HER ROOM AND BATHROOM, ON THE SERVIN THE SINK AND THE SHOWER. STAFF ASSISTED THE PT TO THE SHOWER AND WERE UNABLE TO LOCATE THE IV, IT IS PRESUMED IT GOT FLUSHED DOWN THE TIOLET. PT HAS A FULL SHOWER, EVS CAME AND CLEANED UP ALL THE BLOOD. WAS NOTIFIED AND A STAT H&H WAS COMPLETED HGB 11.9 UP FROM THIS MORNING. CALLED PT SON BACK WITH AN UPDATE. PLAN SEEMS TO BE TO SEND THE PT HOME EARLY TOMORROW IF CIWAS CONTINUE TO BE LOW.
--- NOTE | 2022-11-02 03:54 | NUR ---
MARKETING SALES SUPERVISOR SUMMARY A&O TO SELF. PATIENT EFFECITVELY COMMUNICATES NEEDS. VSS. TELE REVEALS SINUS, HR 60'S. RR EVEN AND UNLABORED ON RA. PATIENT OBSERVED TO BE SLEEPING COMFORTABLY THROUGHOUT THE NIGHT. MINIMAL EPISODES OF RESTLESSNESS, AND PATIENT HAS BEEN REDIRECTABLE. NO ACUTE EVENTS THIS SHIFT. BED LOW AND LOCKED. CALL LIGHT WITHIN REACH. BED ALARM IS NOT ON DUE TO IT CAUSING PATIENT SEVERE DISTRESS, PER DAYSHIFT REPORT. THIS RN WILL CONTINUE TO CLOSELY MONITOR.
[2022-11-02 06:03] LABS: BASOPHILS ABSOLUTE AUTO 0.03 K/mm3 (0.00-0.23); BASOPHILS PERCENT AUTO 1 % (0-2); EOSINOPHILS ABSOLUTE AUTO 0.17 K/mm3 (0.00-0.68); EOSINOPHILS PERCENT AUTO 3 % (0-6); Hemoglobin 10.9 g/dL (11.5-16.0); IMMATURE GRAN ABSOLUTE AUTO 0.01 K/mm3 (0.00-0.10); IMMATURE GRAN PERCENT AUTO 0 % (0-1); LYMPHOCYTES ABSOLUTE AUTO 0.87 K/mm3 (0.84-5.20); LYMPHOCYTES PERCENT AUTO 17 % (21-46); MONOCYTES ABSOLUTE AUTO 0.64 K/mm3 (0.16-1.47); MONOCYTES PERCENT AUTO 13 % (4-13); Mean Corpuscular HGB 32.7 pg (26.0-34.0); Mean Corpuscular Volume 99 fL (80-100); Mean Platelet Volume 11.3 fL (9.1-12.4); NEUTROPHILS ABSOLUTE AUTO 3.28 K/mm3 (1.96-9.15); NEUTROPHILS PERCENT AUTO 66 % (41-73); Platelet Count 75 K/mm3 (150-400); RDW Coefficient Variation 12.3 % (11.7-14.2); RDW Standard Deviation 45.3 fL (35.1-46.3); Red Blood Cell Count 3.33 M/mm3 (3.80-5.20)
[2022-11-02 06:52] LABS: Bun/Creatinine Ratio 21.4 (12.0-20.0); Calcium, Blood 8.9 mg/dL (8.5-10.1); Creatinine, Blood 1.03 mg/dL (0.40-1.00); Potassium, Blood 3.8 mmol/L (3.5-5.5)
--- NOTE | 2022-11-02 16:09 | NUR ---
PT SITTING UP AT THE EOB NASEEM FOR HELP- WHEN THIS RN HAD BEEN IN THE ROOM 15 MINUTES PRIOR, THE PT DID NOT REMEMBER SPEAKING. SHE WAS NOTABLY DISTRAUGHT STATING THAT HER FOOT WAS JUST "KILLING ME!" SSHE ALSO C/O CHEST PAIN, NO CHANGE ON TELE WITH THE EXCEPTION OF AN INCREASE IN RATE FROM 70'S TO 80'S. VS CHECKED. CALLED DR RODRIGUEZ, HE IS PLACING ORDERS FOR PAIN MANAGEMENT.
--- NOTE | 2022-11-02 19:53 | NUR ---
SHIFT SUMMARY- BEDSIDE REPORT COMPLETED WITH THE NIGHT RN SANDRA. PT SLEEPING, WOKE TO STAFF VOICES. LLE IS RED AND HOT, HAVE BEEN ALTERNATING ICE ON AND OFF AND IT SEEMS TO BE RELIEVING THE PAIN THERE A LITTLE SO PT CAN SLEEP. PLACED ICE PACKS AT SHIFT CHANGE, NIGHT RN AWARE. PT IN BED, BED IN LOW POSITION. APPEARS TO BE IN PAIN (PLACED ICE PACKS AND PUT THE FOOT UP ON PILLOWS). PT HAS BEEN A BIT MORE CONFUSED TODAY, SHE DID RECIEVE A DOSE OF OXY TODAY HOWEVER THE CONFUSION WAS BEFORE THAT. SINCE THE OXY SHE HAS BEEN MORE DROWSY, NIGHT RN AWARE, BED ALARM SET FOR PT SAFETY.
--- NOTE | 2022-11-03 03:42 | NUR ---
OYSTER GROWER SUMMARY A&0 TO SELF. PATIENT EFFECITVELY COMMUNICATES NEEDS. VSS. SPO2 >92% ON RA. PATIENT OBSERVED TO BE SLEEPING COMFORTABLY THROUGHOUT THE NIGHT. PAIN ASSESSED AND MEDICATED PER EMAR. NO ACUTE EVENTS. BED LOW AND LOCKED. BED ALARM ON. CALL LIGHT WITHIN REACH. THIS RN WILL CONTINUE TO MONITOR.
[2022-11-03 05:53] LABS: BASOPHILS ABSOLUTE AUTO 0.04 K/mm3 (0.00-0.23); BASOPHILS PERCENT AUTO 1 % (0-2); EOSINOPHILS ABSOLUTE AUTO 0.12 K/mm3 (0.00-0.68); EOSINOPHILS PERCENT AUTO 2 % (0-6); Hematocrit 31.8 % (33.0-51.0); Hemoglobin 10.7 g/dL (11.5-16.0); IMMATURE GRAN ABSOLUTE AUTO 0.02 K/mm3 (0.00-0.10); IMMATURE GRAN PERCENT AUTO 0 % (0-1); LYMPHOCYTES ABSOLUTE AUTO 0.92 K/mm3 (0.84-5.20); LYMPHOCYTES PERCENT AUTO 17 % (21-46); MONOCYTES ABSOLUTE AUTO 0.92 K/mm3 (0.16-1.47); MONOCYTES PERCENT AUTO 17 % (4-13); Mean Corpuscular HGB 33.5 pg (26.0-34.0); Mean Corpuscular HGB Conc 33.6 g/dL (31.5-36.5); Mean Corpuscular Volume 100 fL (80-100); Mean Platelet Volume 10.8 fL (9.1-12.4); NEUTROPHILS ABSOLUTE AUTO 3.38 K/mm3 (1.96-9.15); NEUTROPHILS PERCENT AUTO 63 % (41-73); Platelet Count 67 K/mm3 (150-400); RDW Coefficient Variation 12.3 % (11.7-14.2); RDW Standard Deviation 44.8 fL (35.1-46.3); Red Blood Cell Count 3.19 M/mm3 (3.80-5.20)
[2022-11-03 11:09] LABS: Albumin, Blood 2.5 g/dL (3.4-5.0); Anion Gap 2 mmol/L (6-16); Blood Urea Nitrogen 25 mg/dL (8-24); Bun/Creatinine Ratio 22.5 (12.0-20.0); CO2, Blood 28 mmol/L (21-32); Calcium, Blood 9.6 mg/dL (8.5-10.1); Chloride, Blood 108 mmol/L (98-108); Creatinine, Blood 1.11 mg/dL (0.40-1.00); Glomerular Filtration Rate 49 (60-); Glucose, Blood 115 mg/dL (70-99); Magnesium, Blood 1.6 mg/dL (1.6-2.4); Phosphorus, Blood 3.7 mg/dL (2.5-4.9); Potassium, Blood 3.8 mmol/L (3.5-5.5); Sodium, Blood 138 mmol/L (136-145)
--- NOTE | 2022-11-03 17:05 | NUR ---
SHIFT SUMMARY: PATIENT ALERT AND ORIENTED TO SELF. PATIENT COULD NOT RECALL THE SPICIFIC DAY, DATE, MONTH AND YEAR. PATIENT DENIES CP/CHEST DISCOMFORT. ON TLE, SR IN HIGH 60'S PER HATCHERY WORKERKENNETH JEAN-BAPTISTE. DENIES N/V, SOB. PATIENT ON RA c SPO2 ABOVE 97% T/O SHIFT. PATIENT REPORTS PAIN TO L FOOT 07/04. RECEIVED SCHEDULED TYLENOL AND ICE PACK T/O THE DAY. PATIENT REPORTS HAVING ADEQUATE RELIEF. RECEIVED IV MAG SULFATE THIS SHIFT. PATIENT IS CONTINENCE OF URINE AND STOOL. UP c 1 ASSIST AND FWW TO BSC. VITAL SIGNS REVIEWED. BED ALARM ON FOR SAFETY. CALL LIGHT IN REACH.
--- NOTE | 2022-11-04 03:01 | NUR ---
CIWA ASSESSMENTS WERE DC'D ON 10/30/22 - SEE ORDERS. HAS BEEN ASYMPTOMATIC THI SHIFT. HOWEVER, HAS OCCASIONALLY CALLED OUT TO THREATEN "you on the porch". OTHERWISE NO NOTED ISSUES RE CIWA. CALL LIGHT IN REACH
--- NOTE | 2022-11-04 03:19 | NUR ---
TALENT ACQUISITION ASSOCIATE SUMMARY VSS. TELE REPORTED HR SINUS RHYTHM AT 67. HAS BEEN UP TO BEDSIDE COMMODE WITH 2 PERSON ASSIST SHE HAS SOME SWELLING OF LEFT FOOT. TYLENOL PO ORDERED, 0000 DOSE WAS GIVEN LATER DUE TO PT REQUEST NOT TO BE BOTHERED, GIVEN LATER WHEN AWAKE. SOME IRRITABLE INTERACTIONS, NO VOICED VERTIGO. NO NOTED SHAKES. SOME CALLING OUT AT PERCEIVED STRANGER "ON THE PORCH", OTHERWISE HAS BEEN RESTING QUIETLY WITHOUT NOTED DISTRESS. CALL LIGHT IN REACH. WILL CONTINUE TO MONITOR.
[2022-11-04 06:23] LABS: Albumin, Blood 2.5 g/dL (3.4-5.0); Anion Gap 8 mmol/L (6-16); Blood Urea Nitrogen 28 mg/dL (8-24); Bun/Creatinine Ratio 26.2 (12.0-20.0); CO2, Blood 26 mmol/L (21-32); Calcium, Blood 9.4 mg/dL (8.5-10.1); Chloride, Blood 110 mmol/L (98-108); Creatinine, Blood 1.07 mg/dL (0.40-1.00); Glomerular Filtration Rate 52 (60-); Glucose, Blood 115 mg/dL (70-99); Phosphorus, Blood 3.5 mg/dL (2.5-4.9); Potassium, Blood 4.2 mmol/L (3.5-5.5); Sodium, Blood 144 mmol/L (136-145)
--- NOTE | 2022-11-04 18:21 | NUR ---
SHIFT SUMMARY: NO NEW CHANGES THIS SHIFT c PATIENT CONDITION. PATIENT CONTINUES TO BE ALERT AND ORIENTED TO SELF AND SORROUNDINGS. PATIENT COULD NOT RECALL THE SPICIFIC TIME, DAY, DATE, MONTH AND YEAR. PLEASANT AND COOPERATIVE c CARE. PATIENT WAS ABLE TO PARTICIPATE C PT/OT MOBILITY TODAY. PT/OT RECOMMENDED SNF FOR FURTHER REHABILITATION. PATIENT PULLED IV TO L FOREARM . VITAL SIGNS REVIEWED. PATIENT REPORTS PAIN TO L FOOT 9/10. MEDICATED c SCHEDULED TYLENOL PER EMAR. PATIENT REPORTS PAIN DOWN TO 3/10. BED ALARM ON FOR SAFETY. CALL LIGHT IN REACH.
--- NOTE | 2022-11-05 04:55 | NUR ---
SHIFT SUMMARY; PT KIND AND COOPERATIVE W/ CARE THIS SHIFT. PT WITH INCREASED CONFUSION THIS AM, PT STATES SHE LEFT THE [facility] YESTERDAY WITH HER FRIEND SAIDA AND THEN SAIDA JUST DROPPED HER OFF AND LEFT HER AND NOW SHE DOESNT KNOW WHERE SHE AT, ORIENTATED THE PT. PT IS A ONE ASSIST TO THE BSC, PT REPORTED SOME PAIN AND SWELLING IN HER L FOOT BUT STATES THIS MORNING THAT HER L FOOT ISNT AT SOAR USUAL. PT DENIES AND SOB OR CHEST PAIN/PRESSURE T/O THE SHIFT. CURRENTLY THE PT IS SLEEPING IN BED WITH THE BED IN THE LOWEST POSITION AND THE CALL LIGHT AT BEDSIDE.
--- NOTE | 2022-11-05 16:44 | NUR ---
PT AOX2-3 COOPERATIVE OF CARE. PT RESTING IN BED MOST OF THE DAY. PT CAN USE CALL LIGHT. PT CAN BE IMPULSIVE AND IS A ONE PERSON WITH WALKER TO RESTROOM. NO DISTERSS NOTED AT THIS TIME WILL CONTINUE TO MONITOR. CALL LIGHT WITHIN REACH.
--- NOTE | 2022-11-06 04:09 | NUR ---
SHIFT SUMMARY; NO ACUTE CHANGES OVERNIGHT. PT SLEPT THE MAJORITY OF THE NIGHT. THE PT REMAINS A 1 ASSIST TO THE BSC. TELE IS IN PLACE, NSR IN THE 60'S. PT WAS CONFUSED LAST NIGHT BUT REDIRECTABLE. PT COMPLAINS OF INCREASED PAIN IN HER FEET WHEN BEARING WEIGHT. CURRENTLY THE PT IS SLEEPING IN BED WITH THE BED IN THE LOWEST POSITION AND THE CALL LIGHT AT BEDSIDE.
[2022-11-06 15:30] LABS: SARS-Cov-2 (COVID-19) Antigen Negative (NEGATIVE)
[2022-11-06] MEDS ORDERED: Lopressor 25 mg25 MG PO (15:43)
[2022-11-06] MEDS ORDERED: ELIQUIS2.5 MG PO (15:43)
[2022-11-06] MEDS ORDERED: FOLI1 PO (15:43)
[2022-11-06] MEDS ORDERED: PRED20 PO (15:45)
[2022-11-06] MEDS ORDERED: MULTIVITAMIN LIQUID PO (15:45)
[2022-11-06] MEDS ORDERED: OXYC5 PO (15:45)
--- NOTE | 2022-11-06 18:34 | NUR ---
REPORT CALLED TO RN AT [facility] AT [id number]
--- NOTE | 2022-11-06 18:43 | NUR ---
PATIENT IS ALERT AND ORIENTED. SHE IS IMPULSIVE AT TIMES. PLAN IS TO TRANSFER TO AT 1900 TODAY. UPDATE GIVEN TO HER SON TODAY AND TOLD HIM THAT SHE WOULD BE AT [facility]. ATTENDS IN PLACE. C/O LEFT FOOT PAIN, MEDICATED PER EMAR. PATIENT IS GETTING DRESSED FOR DC NOW. WILL CONTINUE TO MONITOR
== END 2022-11-06 19:33 | DRG 309 ==
LOC: ER 12:06 → MEDS 14:20 → ER 14:20 → ERHOLD 14:20 → MEDS 14:31 → ERHOLD 14:31 → PCU 21:11 → ERHOLD 21:11 → PCU 10-31 10:14 → MEDS 10-31 14:32 → PCU 10-31 16:51 → MEDS 10-31 16:51
PROVIDERS: Emergency Medicine; Family Medicine; ADMIT Internal Medicine
DX: I48.91 Unspecified atrial fibrillation (principal); F10.239 Alcohol dependence with withdrawal, unspecified; D68.9 Coagulation defect, unspecified; E87.6 Hypokalemia; F03.90 Unspecified dementia, unspecified severity, without behavioral disturbance, psychotic disturbance, mood disturbance, and anxiety; I25.10 Atherosclerotic heart disease of native coronary artery without angina pectoris; F32.A Depression, unspecified; K21.9 Gastro-esophageal reflux disease without esophagitis; E78.5 Hyperlipidemia, unspecified; E03.9 Hypothyroidism, unspecified; E83.42 Hypomagnesemia; K76.0 Fatty (change of) liver, not elsewhere classified; E83.119 Hemochromatosis, unspecified; I67.1 Cerebral aneurysm, nonruptured; R94.31 Abnormal electrocardiogram [ECG] [EKG]; I65.29 Occlusion and stenosis of unspecified carotid artery; I35.0 Nonrheumatic aortic (valve) stenosis; R00.0 Tachycardia, unspecified; M10.9 Gout, unspecified; N18.9 Chronic kidney disease, unspecified; I12.9 Hypertensive chronic kidney disease with stage 1 through stage 4 chronic kidney disease, or unspecified chronic kidney disease; M79.672 Pain in left foot; Z20.822 Contact with and (suspected) exposure to COVID-19; W20.8XXA Other cause of strike by thrown, projected or falling object, initial encounter; Z90.49 Acquired absence of other specified parts of digestive tract; Z98.890 Other specified postprocedural states; Z90.710 Acquired absence of both cervix and uterus; Z88.0 Allergy status to penicillin; Z88.5 Allergy status to narcotic agent; Z88.8 Allergy status to other drugs, medicaments and biological substances; Z79.02 Long term (current) use of antithrombotics/antiplatelets; Z79.899 Other long term (current) drug therapy; Z90.721 Acquired absence of ovaries, unilateral
CPT/HCPCS: 36415; 70450; 71045; 72125; 73630; 80048; 80053; 80069; 82607; 82746; 83735; 83880; 84100; 84443; 84484; 85014; 85018; 85025; 87426; 93005; 93010; 93306; 96365; 96366; 96367; 96372; 96372-59; 96375; 96376; 97110; 97116; 97129; 97162; 97166; 97530; 97535; 99291-25; A9270; C9803; G0378; G0480; J0360; J1650; J2060; J3411; J3475; J3480; J7030; J7512

== ENCOUNTER 2022-12-30 17:56 | Inpatient (IN) | payer MEDICARE ==
[~2022-12-30] VITALS: Ht 170.2 cm; Wt 453.0 kg
[~2022-12-30 17:56] MED LIST changes: +CALC.25 PO; +ELIQUIS2.5 MG PO; +EUTHYROX50 MCG PO; +LOSARTAN POTAS100 M1 PO; +Lopressor 25 mg25 MG PO; +MULTIVITAMIN LIQUID PO; +OMEP20ER PO; +OXYC5 PO; +PRED20 PO
[2022-12-30 18:48] LABS: International Normalized Ratio 1.04; Prothrombin Time Results 10.9 Sec (9.7-11.5)
[2022-12-30 18:49] LABS: Albumin, Blood 3.7 g/dL (3.4-5.0); Bilirubin, Total 0.6 mg/dL (0.1-1.0); Bun/Creatinine Ratio 22.1 (12.0-20.0); Calcium, Blood 9.6 mg/dL (8.5-10.1); Creatinine, Blood 1.04 mg/dL (0.40-1.00); Globulin, Blood 3.6 g/dL (2.2-4.0); Potassium, Blood 3.2 mmol/L (3.5-5.5); Total Protein, Blood 7.3 g/dL (6.4-8.2)
[2022-12-30 19:03] LABS: PCO2 Arterial 26.9 mmHg (35-45); PO2 Arterial 188 mmHg (80-100); pH Blood Arterial 7.43 (7.35-7.45)
[2022-12-30 19:38] LABS: Source, Urine Foley catheter
[2022-12-30 19:48] LABS: BASOPHILS ABSOLUTE AUTO 0.07 K/mm3 (0.00-0.23); BASOPHILS PERCENT AUTO 1 % (0-2); EOSINOPHILS ABSOLUTE AUTO 0.09 K/mm3 (0.00-0.68); EOSINOPHILS PERCENT AUTO 1 % (0-6); Hematocrit 35.2 % (33.0-51.0); Hemoglobin 12.2 g/dL (11.5-16.0); IMMATURE GRAN ABSOLUTE AUTO 0.05 K/mm3 (0.00-0.10); IMMATURE GRAN PERCENT AUTO 1 % (0-1); LYMPHOCYTES ABSOLUTE AUTO 1.25 K/mm3 (0.84-5.20); LYMPHOCYTES PERCENT AUTO 13 % (21-46); MONOCYTES ABSOLUTE AUTO 0.71 K/mm3 (0.16-1.47); MONOCYTES PERCENT AUTO 8 % (4-13); Mean Corpuscular HGB 31.4 pg (26.0-34.0); Mean Corpuscular HGB Conc 34.7 g/dL (31.5-36.5); Mean Corpuscular Volume 91 fL (80-100); Mean Platelet Volume 10.4 fL (9.1-12.4); NEUTROPHILS ABSOLUTE AUTO 7.23 K/mm3 (1.96-9.15); NEUTROPHILS PERCENT AUTO 77 % (41-73); Platelet Count 108 K/mm3 (150-400); RDW Coefficient Variation 13.2 % (11.7-14.2); RDW Standard Deviation 43.9 fL (35.1-46.3); Red Blood Cell Count 3.89 M/mm3 (3.80-5.20)
[2022-12-30 19:57] LABS: Appearance, Urine Hazy (Clear); Bilirubin, Urine Neg (Neg); Blood, Urine 2+ (Neg); Color, Urine Yellow (P-Yellow); Glucose Qualitative, Urine 3+ (Neg); Ketones, Urine Neg (Neg); Leukocyte Esterase, Urine Neg (Neg); Nitrite, Urine Pos (Neg); Protein, Urine 2+ (Neg); Urobilinogen, Urine NORM (Normal); pH, Urine 6.5 (5.0-8.0)
[2022-12-30 20:04] LABS: Bacteria Many /hpf; Hyaline Casts 0-2 /lpf (0-2); Red Blood Cells, Urine 0-2 /hpf (0-2); Squamous Epithelial Cells Mod /hpf (Few); Transitional Epithelial Cells Rare /hpf (0-Rare); White Blood Cells, Urine 0-2 /hpf (0-5)
--- NOTE | 2022-12-31 01:50 | NUR ---
PT BELONGINGS: PT SON & TWO DAUGHTERS AT BEDSIDE. FAMILY MEMBERS REMOVED PT RINGS, DECLINED TO TAKE PTS WRISTWATCH. BAG OF PT BELONGINGS ALSO TAKEN.
--- NOTE | 2022-12-31 03:27 | NUR ---
ASSUMED CARE AT 2320/ TRANSITION TO COMFORT CARE PT ARRIVED TO ICU 10 AT 2320 VIA ED BED AND TRANSFERED TO ICU BED VIA SLIDE SHEET. PT IS INTUBATED WITH VENT SETTINGS AC/VC+ 20/375/5/40%; SHE IS NOT OVER BREATHING THE VENT. SHE IS REACTIVE TO NOXIOUS STIMULI BUT HAS NEGATIVE DOLLS EYES, POSITIVE PLANAR REFLEX; PUPILS FIXED; PROPOFOL INFUSING AT 35MCG/KG/MIN AT ARRIVAL. AFIB NOTED WITH RATE 80-100'S; SBP 130-180'S. OG IN PLACE AND CLAMPED. BOUDREAUX IN PLACE AND DRAINING TO GRAVITY. ONCE ALL OF THE FAMILY WAS AT BEDSIDE THEY DECIDED TO HAVE HER TRANSITION TO COMFORT CARE. TWO DAUGHTER, ONE SON, A [id number]-HOM, AND GRANDSON AT BEDSIDE FOR EXTUBATION. PROPOFOL TURNED OFF AND PRN ATIVAN AND FENTANYL GIVEN FOR TRANSITION. AT 0100 EXTUBATION WENT WELL AND FAMILY IS ACCETPING OF SITUATION. NOT APPROPRIATE AT THIS TIME TO COMPLETE PT MEDICAL HX WITH FAMILY.
--- NOTE | 2022-12-31 04:27 | NUR ---
SPOKE W PT SON OSIRIS, LET HIM KNOW THAT PT WILL TRANSFER TO 334. HE INFORMS ME THAT THEY HAVE CHOSEN [facility].
--- NOTE | 2022-12-31 11:32 | NUR ---
Comfort Care Visit Spoke with Dr Rosario who is just leaving Pt's room and discussed case. Pt placed on comfort care when admitted to the hospital for Intracranial Hemorhage. Pt non responsive. Pt resting in bed with her eyes closed. Pt remains with her eyes closed through visit with family. Multiple family members at bedside. Offered therapeutic listening and answered questions. Gentle education on potential signs and symptoms Pt may experience. Encouraged family to offer reasurrance to Pt. Continued supportive visit. Palliative Care will remain available for symptom management and supportive visits.
--- NOTE | 2022-12-31 16:54 | NUR ---
"Spiritual Care | Comfort Care and EOL Decisions-[facility] Pt. is on Comfort Care and is not responsive. Pts. family is present. Facilitated a life review. Pts. son displays evidene of being engaged and hopeful because of the Pts. reinaldo. Listen with empathy and calming presence. Pryaed a Prayer of blessing on the Pt. and the family. Pts. son and DIL verbalize gratitude for the spiritual care visit. Family has chosen [facility] for home services."
--- NOTE | 2022-12-31 17:44 | NUR ---
SHIFT SUMMARY PT VERBALLY UNRESPONSIVE T/O SHIFT, FAMILY IN T/O SHIFT. MEDICATED PER EMAR FOR S/S OF DISCOMFORT/PAIN. CALL LIGHT W/IN REACH. REPOSITIONED Q2H. PAL CARE IN TO SEE PT/FAMILY
--- NOTE | 2023-01-01 04:07 | NUR ---
PT ON COMFORT CARE. FAMILY WAS AT BEDSIDE UNTIL EARLY IN SHIFT, AROUND 2300. PT HAS BEEN UNRESPONSIVE THROUGHOUT SHIFT BUT OCCASIONALLY DISPLAYS SIGNS OF PAIN/DISCOMFORT. MEDICATED PER EMAR WHICH APPEARS TO BE ADEQUATELY MANAGING DISCOMFORT. SUCTIONED UPPER AIRWAY INTERMITTENTLY, SCOPOLAMINE PATCH IN PLACE. PT DISPLAYS MARQUIS-STROKES RESPIRATIONS. VERY PALE COLORATION BROADLY. REPOSITION Q2. REPOSITIONING APPEARS TO BOTH HELP BREATHING PATTERN AND EXACERBATE IRREGULARITIES INTERMITTENTLY. BOUDREAUX IN PLACE AND DRAINING ALTHOUGH PT DOES NOT APPEAR TO BE PRODUCING MUCH URINE. PT NPO DUE TO ASPIRATION RISK AND UNRESPONSIVENESS. NO BM PASSED ON THIS SHIFT. WILL CONTINUE TO MONITOR.
--- NOTE | 2023-01-01 10:52 | NUR ---
LATE ENTRY/539: PT ON NOC SHIFT. 0540 IS PT'S TOD. PER REPORT FROM NOC RN, FAMILY HAS BEEN NOTIFIED AND WILL BE IN TO RETRIEVE PT'S BELONGINGS THIS AM. TAHUYA BRITT HAS BEEN NOTIFIED AND WILL BE IN TO PRIMARY CARE PEDIATRICIAN. 0755: [facility] [place] REP HERE. REP'S NAME HARRY WESTON.
== END 2023-01-01 05:43 | DRG 65 ==
LOC: ER 17:56 → ICUW 17:57 → MEDS 17:57 → ICUW 23:00 → MEDS 12-31 04:30
PROVIDERS: Emergency Medicine; ADMIT Internal Medicine
PROC: 4A033R1 Measurement of Arterial Saturation, Peripheral, Percutaneous Approach (ICD-10-PCS; principal; 2022-12-30)
PROC: 0BH18EZ Insertion of Endotracheal Airway into Trachea, Via Natural or Artificial Opening Endoscopic (ICD-10-PCS; 2022-12-30)
PROC: 0T9B70Z Drainage of Bladder with Drainage Device, Via Natural or Artificial Opening (ICD-10-PCS; 2022-12-30)
PROC: 5A1935Z Respiratory Ventilation, Less than 24 Consecutive Hours (ICD-10-PCS; 2022-12-30)
PROC: 0D9670Z Drainage of Stomach with Drainage Device, Via Natural or Artificial Opening (ICD-10-PCS; 2022-12-30)
DX: I60.6 Nontraumatic subarachnoid hemorrhage from other intracranial arteries (principal); F03.93 Unspecified dementia, unspecified severity, with mood disturbance; G93.49 Other encephalopathy; Z28.21 Immunization not carried out because of patient refusal; Z51.5 Encounter for palliative care; Z66 Do not resuscitate; I10 Essential (primary) hypertension; E03.9 Hypothyroidism, unspecified; I65.29 Occlusion and stenosis of unspecified carotid artery; I25.10 Atherosclerotic heart disease of native coronary artery without angina pectoris; E78.5 Hyperlipidemia, unspecified; K76.0 Fatty (change of) liver, not elsewhere classified; F10.20 Alcohol dependence, uncomplicated; K21.9 Gastro-esophageal reflux disease without esophagitis; Z90.710 Acquired absence of both cervix and uterus; Z90.721 Acquired absence of ovaries, unilateral; Z90.49 Acquired absence of other specified parts of digestive tract; Z98.890 Other specified postprocedural states; Z88.0 Allergy status to penicillin; Z88.5 Allergy status to narcotic agent; Z88.6 Allergy status to analgesic agent; Z88.8 Allergy status to other drugs, medicaments and biological substances; Z79.890 Hormone replacement therapy; Z79.01 Long term (current) use of anticoagulants; Z79.899 Other long term (current) drug therapy
CPT/HCPCS: 31500; 36600; 51702; 70450; 71045; 80053; 81001; 82803; 85025; 85610; 86850; 86900; 86901; 87077; 87086; 87186; 93005; 93010; 94002; 96365-59; 96366-59; 96375-59; 99291-25; A9270; J1170; J2060; J2704; J3010; J7050